=== PATIENT | male | born 1975 | race Caucasian/White ===

== ENCOUNTER 2017-06-05 09:03 | Day surgery (SDC) | payer OTHER ==
[2017-06-05] VITALS (10 sets, daily range): BP systolic 120–136; BP diastolic 81–94; PULSE 62–77; RESP 10–20; Ht 170.2 cm; Wt 84.0 kg
[~2017-06-05] VITALS: Ht 170.2 cm; Wt 84.0 kg
[~2017-06-05 09:03] MED LIST: SOD CHLORIDE 0.9% 1,000 ML IV ONE
[2017-06-05] MEDS ORDERED: CEFAZOLIN 2 GM/50 ML (PMX) 50 ML IVPB SCH (09:30)
[2017-06-05] MEDS ORDERED: GLYCOPYRROLATE 0.4 MG INJ ONE (10:04)
[2017-06-05] MEDS ORDERED: MIDAZOLAM 1 MG/ML 2 ML INJ ONE (10:04)
[2017-06-05] MEDS ORDERED: ROPIVACAINE 0.5 % 30 ML VIAL ONE (10:04)
[2017-06-05] MEDS ORDERED: NEOSTIGMINE 3 MG/3 ML SYRINGE ONE (10:04)
[2017-06-05] MEDS ORDERED: PROPOFOL 20 ML ONE ×2 (10:04→11:30)
[2017-06-05] MEDS ORDERED: ROCURONIUM 50 MG INJ ONE (10:04)
[2017-06-05] MEDS ORDERED: METOCLOPRAMIDE 10 MG INJ ONE (10:04)
[2017-06-05] MEDS ORDERED: KETOROLAC 30 MG INJ ONE (10:05)
[2017-06-05] MEDS ORDERED: CEFAZOLIN 1 GM INJ ONE (10:05)
[2017-06-05] MEDS ORDERED: DIPHENHYDRAMINE 50 MG INJ IV PRN (11:00)
[2017-06-05] MEDS ORDERED: ONDANSETRON 4 MG INJ IV PRN (11:00)
[2017-06-05] MEDS ORDERED: OXYCODONE/ACETAMINOPHEN (5/325) TAB PO PRN ×2 (11:00)
[2017-06-05] MEDS ORDERED: MEPERIDINE 25 MG INJ IV PRN (11:00)
[2017-06-05] MEDS ORDERED: HYDROmorphONE (0.2 MG/ML) 10ML SYG IV PRN ×2 (11:00)
[2017-06-05] MEDS ORDERED: FENTAnyl 50 MCG/ML VIAL ONE (11:13)
--- NOTE | 2017-06-05 11:49 | OPR ---
Date/Time of Note Date/Time of Note DATE: 06/05/17 TIME: 11:46 Operative Report Procedure Date: Jun 05, 2017 Preoperative Diagnosis symptomatic gallstones Postoperative Diagnosis same Operation/Procedure Performed 1. laparoscopic cholecystectomy Surgeon see signature line Micro Lab Analyst none Anesthesia Type: general Estimated Blood Loss: 10 - 50 ml's Transfusion none Specimen gallbladder Grafts/Implants none Complications none Pt Condition Post Procedure: stable Indications This is a 42-year-old male with symptomatic gallstones. He requests surgical excision of his gallbladder. Risks alternatives benefits and percent were discussed the patient. Patient expresses understanding consents to the operation. Procedure Description Patient taken to the OR prepped and draped in usual sterile fashion. Surgical timeout was performed. IV antibiotics were given. Infraumbilical transverse incision is made with a 15 blade. Dissection cautery was carried onto the fascia. The fascia was grasped with Minna's and divided with curved Vick scissors. 0 Vicryl U stitch was placed into the fascia. Blueness on trocar is introduced pneumoperitoneum established. Midepigastric 12 mm optical trocar was placed under direct visualization. Right upper quadrant upper flank 5 mm optical trochars were placed under direct visualization. The gallbladder was grasped and retracted in a lateral and our direction. This allowed visualization of the cystic duct. The critical view is established the cystic duct was divided with 35 mm echelon vascular stapler due to the thickened tissue. The staple line was reinforced with clips. The cystic artery was divided with 3 clips proximal and clip distal. The gallbladder is taken off the gallbladder bed. There is minimal spillage. Suction irrigation was used. The gallbladder was retrieved using Endo Catch bag. There is good hemostasis. Ports removed under direct visualization. 0 Vicryl U stitch was tied down. Skin was closed using skin analilia. Dry dressings were applied. Denice KERN Jun 05, 2017 11:49
[2017-06-05] MEDS ORDERED: HYDROCODONE/APAP (5/325) TAB PO ONE (12:00)
[2017-06-05] MEDS: HYDROmorphONE (0.2 MG/ML) 10ML SYG IV PRN ×3 (12:07→12:25)
[2017-06-06] MEDS ORDERED: DOCU-144 PO (16:39)
[2017-06-06] MEDS ORDERED: OXYC-279 PO (16:39)
== END 2017-06-05 14:06 | disposition home or self-care (01) ==
LOC: SDS 09:03
PROVIDERS: ATTEND Surgery
DX: K80.10 Calculus of gallbladder with chronic cholecystitis without obstruction (principal)
CPT/HCPCS: 47562; 80053; 85025; 85610; 85730; 88304; J0690; J1170; J2250; J2710; J2765; J2795; J3010; Z7512; Z7610; J1885

== ENCOUNTER 2017-06-06 13:55 | Inpatient (IN) | payer OTHER ==
[2017-06-06 14:00] VITALS: BP 121/59; RESP 19
[2017-06-06] MEDS ORDERED: SOD CHLORIDE 0.9% 1,000 ML IV SCH (15:33)
[2017-06-06] MEDS ORDERED: ONDANSETRON 4 MG INJ IV PRN (16:00)
[2017-06-06] MEDS ORDERED: NACL 0.9% 3 ML SYG IV SCH (16:00)
[2017-06-06] MEDS ORDERED: morphine 2 MG INJ IV PRN (16:00)
[2017-06-06] MEDS ORDERED: ACETAMINOPHEN 325 MG TAB PO PRN (16:00)
--- NOTE | 2017-06-06 16:02 | HP ---
Date/Time of Note Date/Time of Note DATE: 06/06/17 TIME: 15:59 Assessment/Plan VTE Prophylaxis VTE Prophylaxis Intervention: SCD's Assessment/Plan Chief Complaint/Hosp Course 1. Acute abdominal pain in a patient who is status post cholecystectomy. Imaging from outpatient facility showed 2.1 cm calcification and fluid in the gallbladder fossa that may represent a retained gallbladder. The patient to be evaluated by the patient's surgeon. The patient was started on a clear liquid diet. The patient will be provided with adequate pain control. Advancement of diet will be as per the surgeon. 2. Bilateral atelectasis is evident on CT scan. Most probably postoperative atelectasis. Continue incentive spirometry. 3. Nicotine use. Cessation advised. Plan: The patient will be admitted to inpatient medical surgical floor. The patient will be started on a clear liquid diet. The patient will be started on DVT prophylaxis. The patient will remain a full code. Activities will be tolerated. The rest of the patient's management will be based on the clinical course, inputs from consultants, and the results of diagnostic studies. Based on the patient's clinical presentation, he most probably requires at least 1 midnight's stay for further management and evaluation of his clinical presentation. The case and management of this patient was fully discussed with Dr. Miner. Problems: HPI/ROS Admit Date/Time Admit Date/Time Jun 06, 2017 at 13:55 Hx of Present Illness Reason for admission: Abdominal pain. Consultants 1. Syed Chavez MD, General Surgery. This is a 42-year-old male with past medical history of symptomatic cholelithiasis status post laparoscopic cholecystectomy as an elective procedure on 06/05/2017. The patient was discharged from a same-day surgery on 06/05/2017. The patient was apparently unable to fill up his analgesic prescription. Consequently he went to the nearest ER at [facility]. The patient underwent a CT scan of the abdomen and pelvis at [place] that showed mild bilateral lower lobe infiltrate/atelectasis. The CT also showed a 2.1 cm calcification and fluid in the gallbladder fossa that may represent a retained gallbladder and small amount of free fluid. The patient was treated with IV analgesics and IV fluids at the emergency room. The patient complained of nausea. He denied any vomiting. He has been tolerating a regular consistency diet at home. The patient was transferred to [facility] because of insurance reasons. ROS Eyes: no complaints ENT: no complaints Respiratory: no complaints Cardiovascular: no complaints Gastrointestinal: nausea, pain Genitourinary: no complaints Musculoskeletal: no complaints Skin: no complaints Neurologic: no complaints Endocrine: no complaints Lymphatic: no complaints Psychological: no complaints Immunologic: no complaints PMH/Family/Social Past Medical History Medical History: no pertinent history Past Surgical History Past Surgical Hx: cholecystectomy Social History Alcohol Use: occasionally Smoking Status: Current every day smoker Drug Use: none Exam/Review of Systems Exam Exam General: Adequately build 42 year-old male lying in bed in no apparent distress. HEENT: Normocephalic, atraumatic. Eyes: Anicteric sclerae, conjunctivae clear. ENT: Nasal septum midline, oral mucosa moist. Neck supple, no JVD noticed. Respiratory: Bilaterally diminished breath sounds. No use of accessory muscles of respiration. No adventitious breath sounds. Cardiovascular: S1, S2 heard. No murmurs or gallops. Abdomen: Soft and nondistended. Laparoscopic incision sites with analilia over it. Genitourinary: Deferred. Extremities: No cyanosis, no clubbing, no edema. Peripheral pulses palpable. Neurologic: Cranial nerves II through XII grossly intact. The patient is awake, alert, and oriented. Skin: Normal skin turgor. No skin rashes. SHADI GUERRA NP Jun 06, 2017 16:02 SHADI GUERRA NP Jun 06, 2017 16:02
--- NOTE | 2017-06-06 16:38 | PDOCDIS ---
Discharge Instructions DIAGNOSIS Discharge Diagnosis Abdominal pain. CONDITION Patient Condition: Stable OTHER ORDERS: Other Orders: 1. Take a low-cholesterol diet. 2. Take medications as needed for pain. 3. Follow-up with Dr. Chavez for incision check. SHADI GUERRA NP Jun 06, 2017 16:38
[2017-06-06] MEDS ORDERED: DOCU-144 PO (16:39)
[2017-06-06] MEDS ORDERED: OXYC-279 PO (16:39)
[2017-06-06 20:25] VITALS: BP 113/77; RESP 20
[2017-06-06] MEDS: DOCUSATE SODIUM 100 MG CAP PO SCH (21:22)
[2017-06-06] MEDS: OXYCODONE/ACETAMINOPHEN (5/325) TAB PO PRN (21:22)
--- NOTE | 2017-06-07 01:15 | CONS ---
DATE OF ADMISSION: 06/06/2017 DATE OF CONSULTATION: 06/06/2017 GENERAL SURGERY CONSULTATION NOTE INDICATION: This is a 42-year-old male who underwent laparoscopic cholecystectomy yesterday. He wa s unable to fill his postop pain medication and went to the ER for evaluation. He denies any nausea or vomiting, any fevers or chills. CT scan imaging at [place], at outside hospital was performe d, shows possible calcification versus shadowing in the gallbladder region. However, the patient is asymptomatic from the gallbladder perspective and has good pain control. General surgery was consu lted for evaluation and management. REVIEW OF SYSTEMS: HEENT: No complaints. GASTROINTESTINAL: Some focal pain as suspected. GENITOURINARY: No complaints. MUSCULOSKELETAL: No complaints. SKIN: No complaints. NEUROLOGIC: Intact grossly. PHYSICAL EXAMINATION: GENERAL: Well-nourished male, generally. CARDIOVASCULAR: Regular rate and rhythm. LUNGS: Clear to auscultation. ABDOMEN: Focal tenderness appropriate for postsurgical patient. No peritoneal signs. No rebound t enderness. ASSESSMENT AND PLAN: This is a 42-year-old male who underwent a laparoscopic cystectomy, who was no t able to get his pain medication and had workup showing suspected shadowing in the gallbladder stewart a; however, post-surgical evaluation may have findings such as this, along with some clips that were applied during surgery. The patient is to be discharged home, will follow up in clinic. Dictated By: SOPHIE KERN MD SB/EMMA Conf#: [id number] DID#: [id number] CC: YANG LEWIS MD;*EndCC*
--- NOTE | 2017-06-07 01:15 | CONS ---
DATE OF ADMISSION: 06/06/2017 DATE OF CONSULTATION: 06/06/2017 GENERAL SURGERY CONSULTATION NOTE INDICATION: This is a 42-year-old male who underwent laparoscopic cholecystectomy yesterday. He wa s unable to fill his postop pain medication and went to the ER for evaluation. He denies any nausea or vomiting, any fevers or chills. CT scan imaging at [place], at outside hospital was performe d, shows possible calcification versus shadowing in the gallbladder region. However, the patient is asymptomatic from the gallbladder perspective and has good pain control. General surgery was consu lted for evaluation and management. REVIEW OF SYSTEMS: HEENT: No complaints. GASTROINTESTINAL: Some focal pain as suspected. GENITOURINARY: No complaints. MUSCULOSKELETAL: No complaints. SKIN: No complaints. NEUROLOGIC: Intact grossly. PHYSICAL EXAMINATION: GENERAL: Well-nourished male, generally. CARDIOVASCULAR: Regular rate and rhythm. LUNGS: Clear to auscultation. ABDOMEN: Focal tenderness appropriate for postsurgical patient. No peritoneal signs. No rebound t enderness. ASSESSMENT AND PLAN: This is a 42-year-old male who underwent a laparoscopic cystectomy, who was no t able to get his pain medication and had workup showing suspected shadowing in the gallbladder stewart a; however, post-surgical evaluation may have findings such as this, along with some clips that were applied during surgery. The patient is to be discharged home, will follow up in clinic. Dictated By: SOPHIE KERN MD SB/EMMA Conf#: [id number] DID#: [id number] CC: YANG LEWIS MD;*EndCC*
[2017-06-07] MEDS: OXYCODONE/ACETAMINOPHEN (5/325) TAB PO PRN ×2 (01:59→07:19)
[2017-06-07 02:10] VITALS: BP 118/79; RESP 20
[2017-06-07 07:00] VITALS: BP 110/72; RESP 18
[2017-06-07] MEDS: DOCUSATE SODIUM 100 MG CAP PO SCH (08:53)
--- NOTE | 2017-06-07 11:13 | PDOCDIS ---
Discharge Instructions DIAGNOSIS Discharge Diagnosis Abdominal pain. CONDITION Patient Condition: Stable HOME CARE INSTRUCTIONS: Diet Instructions: Low Fat /Cholesterol OTHER ORDERS: Other Orders: 1. Take a low-cholesterol diet. 2. Take medications as needed for pain. 3. Follow-up with Dr. Chavez for incision check. SHADI GUERRA NP Jun 07, 2017 11:13
--- NOTE | 2017-06-07 11:32 | DS ---
Date/Time of Note Date/Time of Note DATE: 06/07/17 TIME: 11:27 Discharge Summary Admission/Discharge Info Admit Date/Time Jun 06, 2017 at 13:55 Discharge Date/Time Discharge Diagnosis 1. Acute abdominal pain in a patient who is status post cholecystectomy. 2. Nicotine use. Patient Condition: Stable Consults 1. Syed Chavez MD, General Surgery. Hx of Present Illness Reason for admission: Abdominal pain. Consultants 1. Syed Chavez MD, General Surgery. This is a 42-year-old male with past medical history of symptomatic cholelithiasis status post laparoscopic cholecystectomy as an elective procedure on 06/05/2017. The patient was discharged from the same-day surgery at [facility] on 06/05/2017. The patient was apparently unable to fill up his analgesic prescription. Consequently, he went to the nearest ER at [facility]. The patient underwent a CT scan of the abdomen and pelvis at [place] that showed mild bilateral lower lobe infiltrate/atelectasis. The CT also showed a 2.1 cm calcification and fluid in the gallbladder fossa which may represent a retained gallbladder and small amount of free fluid. The patient was treated with IV analgesics and IV fluids at the emergency room. The patient complained of nausea. He denied any vomiting. He has been tolerating a regular consistency diet at home. The patient was transferred to [facility] because of insurance reasons. Hospital Course The patient was admitted to inpatient setting. The patient was provided with adequate pain control. The patient was started on a clear liquid diet. The patient's surgeon was informed about the patient's admission. The patient's surgeon came and saw the patient and he reviewed the CT scan results from the outside facility. As per the surgeon, the CT scan findings are expected because of the recent surgery, the patient needs pain control and the patient can be started on a low-cholesterol diet and can be discharged home once he can tolerate a regular consistency diet. The patient was started on a regular consistency, low-cholesterol diet and the patient was able to tolerate the diet without any significant gastrointestinal symptoms. The patient will be discharged home. The patient had some atelectasis bilaterally noticed on the CT scan which is suspected after laparoscopic cholecystectomy if not doing incentive spirometry. The patient was given incentive spirometer and he was instructed on the use of incentive spirometer status post discharge. He is a current nicotine user. He was advised on quitting the use of nicotine. The patient had a stable hospital course. The patient is stable to be discharged home. Discharge Instructions 1. Take a low-cholesterol diet. 2. Take medications as needed for pain. 3. Follow-up with Dr. Chavez for incision check. The patient verbalized understanding of his discharge instructions. At this time I would like to thank for seeing the patient and providing clinical recommendations. The case and management of this patient was fully discussed with Dr. Miner. Home Meds Active Scripts Docusate Sodium* (Colace*) 100 Mg Capsule, 100 MG PO BID, #20 CAP Prov:SHADI GUERRA MANAGER [employer] 06/06/17 Oxycodone HCl/Acetaminophen (Percocet 5-325 mg Tablet) 1 Each Tablet, 1 EACH PO Q6H for PAIN, #14 TAB Prov:SHADI GUERRA MANAGER [employer] 06/06/17 Follow-up Plan Follow-up with Dr. Chavez as instructed for incision check and staple removal. Primary Care Provider [facility] Time spent on discharge: > 30 minutes Pending Labs Laboratory Tests Test 06/07/17 04:32 White Blood Count 8.110^3/ul (4.8-10.8) Red Blood Count 4.4610^6/ul (4.70-6.10) Hemoglobin 13.0g/dl (14.0-18.0) Hematocrit 38.5% (42.0-52.0) Mean Corpuscular Volume 86.3fl (82.0-101.0) Mean Corpuscular Hemoglobin 29.1pg (29.0-33.0) Mean Corpuscular Hemoglobin Concent 33.8g/dl (32.0-37.0) Red Cell Distribution Width 12.6% (11.5-14.5) Platelet Count 88316^3/UL (140-415) Mean Platelet Volume 9.2fl (7.4-10.4) Neutrophils % 65.9% (39.0-77.0) Lymphocytes % 18.0% (15.0-51.0) Monocytes % 12.0% (0.0-11.0) Eosinophils % 3.2% (0.0-7.0) Basophils % 0.5% (0.0-2.0) Nucleated Red Blood Cells % 0.0/100WBC (0.0-0.0) Neutrophils # 5.410^3/ul (1.6-7.5) Lymphocytes # 1.510^3/ul (0.8-2.9) Monocytes # 1.010^3/ul (0.3-0.9) Eosinophils # 0.310^3/ul (0.0-0.5) Basophils # 0.010^3/ul (0.0-0.1) Nucleated Red Blood Cells # 0.010^3/ul (0.0-0.0) Sodium Level 140mmol/L (135-144) Potassium Level 3.9mmol/L (3.5-5.1) Chloride Level 103mmol/L (97-110) Carbon Dioxide Level 30mmol/L (21-31) Anion Gap 11 (8-16) Blood Urea Nitrogen 10mg/dl (7-20) Creatinine 0.69mg/dl (0.61-1.24) Glucose Level 97mg/dl (70-220) Calcium Level 9.2mg/dl (8.4-10.2) Phosphorus Level 4.3mg/dl (2.5-4.9) Magnesium Level 1.7mg/dl (1.7-2.5) Total Bilirubin 0.5mg/dl (0.2-1.3) Direct Bilirubin 0.00mg/dl (0.00-0.20) Indirect Bilirubin 0.5mg/dl (0-1.1) Aspartate Amino Transf (AST/SGOT) 62IU/L (15-46) Alanine Aminotransferase (ALT/SGPT) 96IU/L (13-69) Alkaline Phosphatase 52IU/L (42-121) Total Protein 6.6g/dl (6.1-8.1) Albumin 3.5g/dl (3.3-4.9) Globulin 3.10g/dl (1.3-3.2) Albumin/Globulin Ratio 1.12 Amylase Level 47U/L (11-123) Lipase 46U/L (23-300) SHADI GUERRA NP Jun 07, 2017 11:32
--- NOTE | 2017-06-07 11:32 | DS ---
Date/Time of Note Date/Time of Note DATE: 06/07/17 TIME: 11:27 Discharge Summary Admission/Discharge Info Admit Date/Time Jun 06, 2017 at 13:55 Discharge Date/Time Discharge Diagnosis 1. Acute abdominal pain in a patient who is status post cholecystectomy. 2. Nicotine use. Patient Condition: Stable Consults 1. Syed Chavez MD, General Surgery. Hx of Present Illness Reason for admission: Abdominal pain. Consultants 1. Syed Chavez MD, General Surgery. This is a 42-year-old male with past medical history of symptomatic cholelithiasis status post laparoscopic cholecystectomy as an elective procedure on 06/05/2017. The patient was discharged from the same-day surgery at [facility] on 06/05/2017. The patient was apparently unable to fill up his analgesic prescription. Consequently, he went to the nearest ER at [facility] [place]. The patient underwent a CT scan of the abdomen and pelvis at [place] that showed mild bilateral lower lobe infiltrate/atelectasis. The CT also showed a 2.1 cm calcification and fluid in the gallbladder fossa which may represent a retained gallbladder and small amount of free fluid. The patient was treated with IV analgesics and IV fluids at the emergency room. The patient complained of nausea. He denied any vomiting. He has been tolerating a regular consistency diet at home. The patient was transferred to [facility] because of insurance reasons. Hospital Course The patient was admitted to inpatient setting. The patient was provided with adequate pain control. The patient was started on a clear liquid diet. The patient's surgeon was informed about the patient's admission. The patient's surgeon came and saw the patient and he reviewed the CT scan results from the outside facility. As per the surgeon, the CT scan findings are expected because of the recent surgery, the patient needs pain control and the patient can be started on a low-cholesterol diet and can be discharged home once he can tolerate a regular consistency diet. The patient was started on a regular consistency, low-cholesterol diet and the patient was able to tolerate the diet without any significant gastrointestinal symptoms. The patient will be discharged home. The patient had some atelectasis bilaterally noticed on the CT scan which is suspected after laparoscopic cholecystectomy if not doing incentive spirometry. The patient was given incentive spirometer and he was instructed on the use of incentive spirometer status post discharge. He is a current nicotine user. He was advised on quitting the use of nicotine. The patient had a stable hospital course. The patient is stable to be discharged home. Discharge Instructions 1. Take a low-cholesterol diet. 2. Take medications as needed for pain. 3. Follow-up with Dr. Chavez for incision check. The patient verbalized understanding of his discharge instructions. At this time I would like to thank for seeing the patient and providing clinical recommendations. The case and management of this patient was fully discussed with Dr. Miner. Home Meds Active Scripts Docusate Sodium* (Colace*) 100 Mg Capsule, 100 MG PO BID, #20 CAP Prov:SHADI GUERRA DETAILER 06/06/17 Oxycodone HCl/Acetaminophen (Percocet 5-325 mg Tablet) 1 Each Tablet, 1 EACH PO Q6H for PAIN, #14 TAB Prov:SHADI GUERRA DETAILER 06/06/17 Follow-up Plan Follow-up with Dr. Chavez as instructed for incision check and staple removal. Primary Care Provider [facility] Time spent on discharge: > 30 minutes Pending Labs Laboratory Tests Test 06/07/17 04:32 White Blood Count 8.110^3/ul (4.8-10.8) Red Blood Count 4.4610^6/ul (4.70-6.10) Hemoglobin 13.0g/dl (14.0-18.0) Hematocrit 38.5% (42.0-52.0) Mean Corpuscular Volume 86.3fl (82.0-101.0) Mean Corpuscular Hemoglobin 29.1pg (29.0-33.0) Mean Corpuscular Hemoglobin Concent 33.8g/dl (32.0-37.0) Red Cell Distribution Width 12.6% (11.5-14.5) Platelet Count 67455^3/UL (140-415) Mean Platelet Volume 9.2fl (7.4-10.4) Neutrophils % 65.9% (39.0-77.0) Lymphocytes % 18.0% (15.0-51.0) Monocytes % 12.0% (0.0-11.0) Eosinophils % 3.2% (0.0-7.0) Basophils % 0.5% (0.0-2.0) Nucleated Red Blood Cells % 0.0/100WBC (0.0-0.0) Neutrophils # 5.410^3/ul (1.6-7.5) Lymphocytes # 1.510^3/ul (0.8-2.9) Monocytes # 1.010^3/ul (0.3-0.9) Eosinophils # 0.310^3/ul (0.0-0.5) Basophils # 0.010^3/ul (0.0-0.1) Nucleated Red Blood Cells # 0.010^3/ul (0.0-0.0) Sodium Level 140mmol/L (135-144) Potassium Level 3.9mmol/L (3.5-5.1) Chloride Level 103mmol/L (97-110) Carbon Dioxide Level 30mmol/L (21-31) Anion Gap 11 (8-16) Blood Urea Nitrogen 10mg/dl (7-20) Creatinine 0.69mg/dl (0.61-1.24) Glucose Level 97mg/dl (70-220) Calcium Level 9.2mg/dl (8.4-10.2) Phosphorus Level 4.3mg/dl (2.5-4.9) Magnesium Level 1.7mg/dl (1.7-2.5) Total Bilirubin 0.5mg/dl (0.2-1.3) Direct Bilirubin 0.00mg/dl (0.00-0.20) Indirect Bilirubin 0.5mg/dl (0-1.1) Aspartate Amino Transf (AST/SGOT) 62IU/L (15-46) Alanine Aminotransferase (ALT/SGPT) 96IU/L (13-69) Alkaline Phosphatase 52IU/L (42-121) Total Protein 6.6g/dl (6.1-8.1) Albumin 3.5g/dl (3.3-4.9) Globulin 3.10g/dl (1.3-3.2) Albumin/Globulin Ratio 1.12 Amylase Level 47U/L (11-123) Lipase 46U/L (23-300) SHADI GUERRA NP Jun 07, 2017 11:32
== END 2017-06-07 11:58 | disposition home or self-care (01) | DRG 948 ==
LOC: MS1 13:55
PROVIDERS: ADMIT Internal Medicine; ATTEND Internal Medicine
DX: G89.18 Other acute postprocedural pain (principal); J95.89 Other postprocedural complications and disorders of respiratory system, not elsewhere classified; J98.11 Atelectasis; R10.9 Unspecified abdominal pain; F17.210 Nicotine dependence, cigarettes, uncomplicated; Z90.49 Acquired absence of other specified parts of digestive tract; Z76.0 Encounter for issue of repeat prescription; Y84.8 Other medical procedures as the cause of abnormal reaction of the patient, or of later complication, without mention of misadventure at the time of the procedure; Y92.019 Unspecified place in single-family (private) house as the place of occurrence of the external cause
CPT/HCPCS: 80053; 82150; 83690; 83735; 84100; 85025; J2270; J7030